=== PATIENT | male | born 1990 | race African-American/Black ===

== ENCOUNTER 2021-06-18 01:16 | Emergency (ER) | payer OTHER, BC ==
[~2021-06-18] VITALS: Ht 165.1 cm; Wt 86.2 kg
[2021-06-18] MEDS ORDERED: TRAZODONE HCL50 MG PO (01:27)
[2021-06-18 02:59] LABS: HEMATOCRIT 48.1 % (42.0-52.0); HEMOGLOBIN 16.1 gm/dL (14.0-18.0); MCH 29.3 pg (26.0-34.0); MCHC 33.4 g/dL (28.0-37.0); MCV 87.7 fL (80.0-100.0); MPV 8.8 fl. (7.2-11.1); RBC 5.49 mil/uL (4.50-6.00); RDW-CV 14.2 % (10.5-14.5); WBC 3.9 thou/uL (4.0-11.0)
[2021-06-18 03:08] LABS: CALCIUM 8.8 mg/dL (8.5-10.1); CREATININE 1.2 mg/dL (0.6-1.3); POTASSIUM 3.9 mmol/L (3.5-5.1)
[2021-06-18 03:12] LABS: TOTAL BILIRUBIN 0.3 mg/dL (<0.1-1.0); TOTAL PROTEIN 6.8 g/dL (6.4-8.2)
[2021-06-18] MEDS ORDERED: AMOXICILLIN875 MG PO (05:45)
[2021-06-18] MEDS ORDERED: MEDROLDOSEPACK PO (05:45)
[2021-06-18 06:03] VITALS: BP 123/88
== END 2021-06-18 06:04 | disposition home or self-care (01) ==
LOC: M.ERS 01:16
PROVIDERS: Personal Emergency Response Attendant
DX: J35.1 Hypertrophy of tonsils (principal); Z20.822 Contact with and (suspected) exposure to COVID-19; Z79.899 Other long term (current) drug therapy